=== PATIENT | male | born 1980 | race Hispanic/Latino ===

== ENCOUNTER 2019-03-21 15:41 | Emergency (ER) | payer OTHER | END 2019-03-21 16:42 | disposition home or self-care (01) | LOC: EDH 15:41 | DX: S23.3XXA Sprain of ligaments of thoracic spine, initial encounter (principal); F31.9 Bipolar disorder, unspecified; Z72.0 Tobacco use; X58.XXXA Exposure to other specified factors, initial encounter; Y93.89 Activity, other specified; Y92.89 Other specified places as the place of occurrence of the external cause; Y99.8 Other external cause status ==